=== PATIENT | female | born 1990 | race Caucasian/White ===

== ENCOUNTER → 2020-12-18 14:38 | Outpatient (BNVA) | payer MEDICAID, SELFPAY | PROVIDERS: Family Provider Physician Assistant; PCP Physician Assistant; Visit Provider Family Medicine | DX: M54.6 Pain in thoracic spine (principal); M25.561 Pain in right knee; M47.814 Spondylosis without myelopathy or radiculopathy, thoracic region | CPT/HCPCS: 72070; 73562 ==

== ENCOUNTER → 2021-03-19 14:04 | Outpatient (BNVA) | payer MEDICAID, SELFPAY | PROVIDERS: Family Provider Physician Assistant; PCP Physician Assistant; Visit Provider Nurse Practitioner Family | DX: Z20.822 Contact with and (suspected) exposure to COVID-19 (principal) | CPT/HCPCS: 87635 ==

== ENCOUNTER 2021-04-26 23:32 | Emergency (ER) | payer MEDICAID, SELFPAY ==
[2021-04-26 23:39] VITALS: BP 136/94; PULSE 82; RESP 17; TEMP 36.5; O2SAT 98; BMI 30.2
[2021-04-27 00:05] VITALS: BP 127/82; PULSE 101; O2SAT 99
--- NOTE | 2021-04-27 00:08 | W.ED.ALLEREA ---
HPI - Allergic Reaction General: Chief complaint: Allergic Reaction Stated complaint: Hives,SOB,stomach pain, Time Seen by Provider: 04/26/21 23:38 Source: patient Mode of arrival: ambulatory Limitations: no limitations History of Present Illness: HPI narrative: 30-year-old female states she started having an allergic reaction few hours ago. States she had a rash to her body along with some dyspnea. She states she took Benadryl at home and her rash is since resolved. Patient does have asthma and states she had some dyspnea and wheezing. She denies any chest pain. She no longer has a rash. She has no throat swelling. Associated symptoms: Deny abdominal pain, nausea or vomiting Review of Systems Const: Denies: fever(s), chills, body aches or change in appetite Eyes: Denies: blurry vision or eye discomfort ENMT: Denies: throat pain or dental pain Card: Denies: chest pain Resp: Reports: wheezing GI: Denies: abdominal pain, nausea, vomiting or diarrhea : Denies: dysuria Musc: Denies: neck pain or back pain Skin/Breast: Reports: rash Neuro: Denies: headache(s) Psych: Denies: depression Pepe/Lymph: Denies: easy bruising All/Imm: Denies: urticaria PFSH ED PFSH: Social History (Updated 03/16/21 @ 10:40 by Tammi Veras LPN) Smoking and tobacco status: current every day smoker cigarettes Alcohol intake: never Physical Exam Const: COMMON NORMALS: no acute distress, patient oriented x3 and healthy appearing HENMT: COMMON NORMALS: normocephalic and atraumatic HEAD & SCALP: normocephalic and atraumatic Eye: COMMON NORMALS: Equal, round and reactive pupils present and EOMs intact bilaterally PUPIL: Yes Equal, round and reactive pupils present Neck/C-Spine: COMMON NORMALS: full ROM and supple Chest: COMMONS NORMALS: normal inspection of the chest and normal palpation of entire chest wall Resp: COMMON NORMALS: normal respiratory effort, No retractions, No use of accessory muscles and clear to auscultation bilaterally AUSCULTATION: clear to auscultation bilaterally and wheezes Cardio: COMMON NORMALS: regular rate, regular rhythm and No murmurs present (Cardio) RATE: regular rate RHYTHM: regular rhythm GI: COMMON NORMALS: Normal to inspection, nondistended, normoactive bowel sounds present, Soft to palpation, non-tender and no masses PALPATION: Yes Soft to palpation Extremity: COMMON NORMALS: normal to inspection and full ROM Neuro: COMMON NORMALS: patient oriented x3, moves all extremities and no focal motor deficits Psych: COMMON NORMALS: mental status grossly normal, Normal thought process present and cooperative THOUGHT PROCESS: Normal thought process present Skin: COMMON NORMALS: no rashes or lesions noted and no wounds GENERAL SKIN EXAM: no rashes or lesions noted Course Vital Signs: Vital signs: Vital Signs Temperature 97.7 F 04/26/21 23:39 Pulse Rate 75 04/27/21 00:31 Respiratory Rate 18 04/27/21 00:25 Blood Pressure 127/82 04/27/21 00:05 Pulse Oximetry 97 04/27/21 00:25 MDM - Allergic Reaction MDM Narrative: Medical decision making narrative: Myra presents with allergic reaction also slight wheezing. Wheezing is much improved with breathing treatment and patient given steroids here. Patient prescribed prednisone for home as well. She is well-appearing here and stable for discharge. She is to follow-up with PCP and return if worsening. Discharge Plan Discharge Patient Disposition: Home Clinical Impression: Allergic reaction Qualifiers: Encounter type: initial encounter Qualified Code(s): T78.40XA - Allergy, unspecified, initial encounter Condition: Stable Prescriptions: New prednisone 50 mg tablet 50 mg PO DAILY Qty: 5 RF: 0 No Action sertraline PO RF: 0 clonazepam PO RF: 0 albuterol sulfate 90 mcg/actuation HFA aerosol inhaler 2 inh inhalation Q6H PRNRF: 0 albuterol sulfate 2.5 mg /3 mL (0.083 %) solution for nebulization 2.5 mg inhalation Q4H PRNRF: 0 acetaminophen-codeine PO RF: 0 prednisone 10 mg tablet 20 mg PO BID 5 Days Qty: 20 RF: 0 amoxicillin 250 mg tablet,chewable 1,000 mg PO TID 7 Days Qty: 84 RF: 0 Flovent HFA 110 mcg/actuation HFA aerosol inhaler 1 puff inhalation BID Qty: 12 RF: 4 Discharge Orders: Discharge ED (Routine); Ordered 04/27/21 Ordered By: Henry Hussein Discharge Diet: Advance as tolerated Discharge Activity: Resume usual activity Patient Instructions: Allergic Reaction 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
[2021-04-27] MEDS: predniSONE 20 mg Tablet 60 MG PO (00:17)
[2021-04-27 00:25] VITALS: PULSE 79; RESP 18; O2SAT 97
[2021-04-27] MEDS: ipratropium-albuterol 3 mL Neb INHALATION (00:26)
[2021-04-27 00:31] VITALS: PULSE 75
[2021-04-27 00:56] VITALS: BP 106/58; PULSE 79; RESP 16; TEMP 36.5; O2SAT 97
== END 2021-04-27 00:56 | disposition home or self-care (01) ==
PROVIDERS: Emergency Provider Emergency Medicine
DX: T78.40XA Allergy, unspecified, initial encounter (principal); F17.210 Nicotine dependence, cigarettes, uncomplicated
CPT/HCPCS: 94640; 99283; J7512

== ENCOUNTER → 2021-05-07 10:09 | Outpatient (BNVA) | payer MEDICAID, SELFPAY | PROVIDERS: Visit Provider Nurse Practitioner Family | DX: L50.0 Allergic urticaria (principal); Z91.018 Allergy to other foods; Z68.31 Body mass index [BMI] 31.0-31.9, adult | CPT/HCPCS: 86003 ==

== ENCOUNTER 2021-05-26 20:36 | Emergency (ER) | payer MEDICAID, SELFPAY ==
[2021-05-26 20:54] VITALS: BP 129/84; PULSE 88; RESP 15; TEMP 36.8; O2SAT 98; BMI 31.1
--- NOTE | 2021-05-26 22:00 | W.ED.SKABFB ---
HPI - Skin/Abscess/Foreign Bdy General: Chief complaint: Skin/Abscess/Foreign Body Stated complaint: infection Time Seen by Provider: 05/26/21 21:38 Source: patient Mode of arrival: ambulatory Limitations: no limitations History of Present Illness: HPI narrative: Patient is a 30-year-old female who presents to ED today with complaint of a left nipple infection. Patient states she had a nipple ring that she took out approximately a month ago because it looked like it was getting infected. Patient states her nipple has been swollen and painful since then. She was told she needed to come to the ED for ultrasound. complaint: abscess/boil Onset (ago): week(s) Tetanus up to date: yes Location: chest (L nipple) Severity: moderate Quality: aching and sharp Pain Consistency: constant Relieving factors: none Exacerbating factors: other (bra rubbing against it) Context: other (nipple piercing ) Associated symptoms: Reports no associated symptoms; Deny chills or fever(s) Treatments prior to arrival: none Review of Systems Const: Denies: fever(s), chills, body aches, fatigue or malaise Skin/Breast: Reports: other (infection L nipple) [facility] ED PFSH: Medical History (Updated 05/26/21 @ 22:00 by NYLA White) Allergy to alpha-gal Social History Smoking and tobacco status: current every day smoker cigarettes Alcohol intake: never Physical Exam Const: COMMON NORMALS: no acute distress, average body habitus, patient oriented x3, no limitations, healthy appearing, alert and well nourished Chest: NIPPLE/AREOLA: No nipple discharge OTHER: patient has enlarged L nipple; no abnormality to areola; nipple is not warm or erythematous she has small puncture levy from piercing to medial aspect that has underlying induration vs scar tissue; there is no abscess to breast tissue; no nipple drainage Neuro: COMMON NORMALS: patient oriented x3 SENSORIUM/ORIENTATION: Yes alert Skin: NARRATIVE SKIN EXAM: see chest assessment for pertinent skin findings Course Vital Signs: Vital signs: Vital Signs Temperature 98.2 F 05/26/21 20:54 Pulse Rate 88 05/26/21 20:54 Respiratory Rate 15 05/26/21 20:54 Blood Pressure 129/84 05/26/21 20:54 Pulse Oximetry 98 05/26/21 20:54 MDM - Skin/Abscess/Foreign Bdy MDM Narrative: Medical decision making narrative: There is no area of fluctuance concerning for abscess at this time. 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 Will place patient on oral antibiotics and recommend follow-up with PCP if symptoms do not improve. Discharge Plan Discharge Patient Disposition: Home Clinical Impression: Nipple infection Condition: Stable Prescriptions: New clindamycin HCl 300 mg capsule 300 mg PO Q6H 7 Days Qty: 28 RF: 0 No Action prednisone 10 mg tablet 10 mg PO DAILY RF: 0 epinephrine [EpiPen 2-Roberto] 0.3 mg/0.3 mL auto-injector 0.3 mg IM Q10M PRNRF: 0 cetirizine [All Day Allergy (cetirizine)] 10 mg tablet 10 mg PO DAILY Qty: 90 RF: 3 sertraline PO RF: 0 clonazepam PO RF: 0 albuterol sulfate 90 mcg/actuation HFA aerosol inhaler 2 inh inhalation Q6H PRNRF: 0 albuterol sulfate 2.5 mg /3 mL (0.083 %) solution for nebulization 2.5 mg inhalation Q4H PRNRF: 0 acetaminophen-codeine PO RF: 0 Flovent HFA 110 mcg/actuation HFA aerosol inhaler 1 puff inhalation BID Qty: 12 RF: 4 Discharge Orders: Discharge ED (Routine); Ordered 05/26/21 Ordered By: Samantha Schroeder 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
[2021-05-26 22:20] VITALS: BP 146/76; PULSE 84; RESP 22; O2SAT 95
== END 2021-05-26 22:20 | disposition home or self-care (01) ==
PROVIDERS: Emergency Provider Physician Assistant
DX: N61.0 Mastitis without abscess (principal); F17.210 Nicotine dependence, cigarettes, uncomplicated
CPT/HCPCS: 99282

== ENCOUNTER → 2021-06-13 14:26 | Outpatient (BNVA) | payer MEDICAID, SELFPAY | PROVIDERS: Visit Provider Nurse Practitioner Family | DX: Z20.822 Contact with and (suspected) exposure to COVID-19 (principal); R19.7 Diarrhea, unspecified; Z91.09 Other allergy status, other than to drugs and biological substances | CPT/HCPCS: 87635 ==

== ENCOUNTER → 2021-06-25 13:32 | Outpatient (BNVA) | payer MEDICAID, SELFPAY | PROVIDERS: Visit Provider Nurse Practitioner Family | DX: Z12.4 Encounter for screening for malignant neoplasm of cervix (principal); N89.8 Other specified noninflammatory disorders of vagina | CPT/HCPCS: 87070; 87205; 87491; 87591; 87661; 88175 ==

== ENCOUNTER → 2022-04-30 12:08 | Outpatient (BNVA) | payer MEDICAID, SELFPAY | PROVIDERS: PCP Nurse Practitioner Family; Visit Provider Nurse Practitioner Family | DX: M79.642 Pain in left hand (principal); S69.92XA Unspecified injury of left wrist, hand and finger(s), initial encounter; X58.XXXA Exposure to other specified factors, initial encounter | CPT/HCPCS: 73110; 73130 ==

== ENCOUNTER 2022-05-20 09:00 | Outpatient (CLI) | payer MEDICAID, SELFPAY ==
--- NOTE | 2022-05-20 09:24 | MR_ITS ---
WS: [id number] MRI OF THE LEFT WRIST WITHOUT GADOLINIUM ENHANCEMENT INDICATION: Wrist and thumb pain. TECHNIQUE: Axial T1 and T2 coronal T1 PD and STIR imaging. Coronal 3-D FSPGR. Sagittal T1 imaging. FINDINGS: Normal radiocarpal joint. Normal bone marrow signal in the scaphoid and lunate. Normal scap holunate interval. Cystic degenerative change involving the capitate. Normal distal radial ulnar join t. Distal ulna is normal in appearance. Palpable marker along the distal radius. Just distal to the p alpable marker is thickening and increased signal involving the abductor pollicis longus tendon with fluid along the tendon sheath consistent with tenosynovitis. Small amount of tenosynovitis extends al christina the extensor pollicis brevis tendon. Normal bone marrow signal in the metacarpal bases. Normal TF CC. Normal carpal tunnel. MR/MR wrist LT wo con* [id number] IMPRESSION: 1. Just distal to the palpable marker along the radial aspect of the wrist the re is diffuse thickening and irregularity involving the abductor pollicis longu s tendon with tenosynovitis. Recommend correlation with area of pain and prior injury 2. Small amount of tenosynovitis along the adjacent extensor pollicis brevis. 3. No other suspicious findings. 4. Normal scaphoid and lunate. Normal scapholunate interval. 5. Normal carpal tunnel.
== END 2022-05-20 09:01 | disposition home or self-care (01) ==
LOC: RAD 09:03
PROVIDERS: PCP Nurse Practitioner Family; Visit Provider Family Medicine
DX: M25.532 Pain in left wrist (principal); M65.88 Other synovitis and tenosynovitis, other site
CPT/HCPCS: 73221